=== PATIENT | male | born 1960 | race Caucasian/White ===

== ENCOUNTER 2017-07-11 23:39 | Emergency (ER) | payer OTHER, MEDICAID ==
[~2017-07-11] VITALS: Ht 172.7 cm; Wt 82.0 kg
[2017-07-11] MEDS ORDERED: IBUPROFEN 600MG TABLET PO STA (23:56)
[2017-07-12 00:28] LABS: BASOPHILS % 0.5 % (0.0-2.0); EOSINOPHILS % 4.4 % (0.0-5.0); HEMATOCRIT. 41.1 % (42.0-52.0); HEMOGLOBIN. 14.3 g/dL (14.0-18.0); LYMPHOCYTES % 16.8 % (20.0-50.0); MEAN CORPUSCULAR VOLUME 89.4 fL (80.0-94.0); MONOCYTES % 5.2 % (2.0-8.0); NEUTROPHILS % 73.1 % (40.0-76.0); RED CELL DISTRIBUTION WIDTH 13.3 % (11.6-14.6)
[2017-07-12 00:35] LABS: CHLORIDE 109 mEq/L (98-107)
[2017-07-12 00:39] LABS: ETHANOL BLOOD < 10 mg/dL
[2017-07-12 00:50] LABS: CLARITY URINE CLOUDY (CLEAR); COLOR URINE YELLOW (YELLOW); KETONES URINE NEGATIVE (NEGATIVE); LEUKOCYTE ESTERASE URINE NEGATIVE (NEGATIVE); NITRITE URINE NEGATIVE (NEGATIVE); OCCULT BLOOD URINE 1+ (NEGATIVE); PH URINE 6.5 (4.5-8.0); PROTEIN URINE NEGATIVE (NEGATIVE); SPECIFIC GRAVITY URINE 1.013 (1.005-1.030)
[2017-07-12 00:51] LABS: MEAN PLATELET VOLUME 10.3 fl (7.4-10.4); PLATELET 105 x1000/uL (130-400)
[2017-07-12 01:05] LABS: *AMPHETAMINES SCREEN URINE NEGATIVE (NEGATIVE); *BARBITURATES SCREEN URINE NEGATIVE (NEGATIVE); *BENZODIAZEPINES SCREEN URINE NEGATIVE (NEGATIVE); *COCAINE SCREEN URINE NEGATIVE (NEGATIVE); METHADONE URINE SCREEN NEGATIVE (NEGATIVE); OPIATES URINE SCREEN PRESUMTIVE POSITIVE (NEGATIVE)
[2017-07-12 01:06] LABS: CANNABINOID URINE SCREEN NEGATIVE (NEGATIVE); PHENCYCLIDINE URINE SCREEN NEGATIVE (NEGATIVE)
[2017-07-12 16:00] VITALS: BP 135/81
== END 2017-07-12 16:52 | disposition home or self-care (01) ==
LOC: ER 23:39
DX: R32 Unspecified urinary incontinence (principal); R15.9 Full incontinence of feces; R31.29 Other microscopic hematuria; I69.354 Hemiplegia and hemiparesis following cerebral infarction affecting left non-dominant side; I10 Essential (primary) hypertension; Z75.1 Person awaiting admission to adequate facility elsewhere; Z59.0 Homelessness
CPT/HCPCS: 36415; 80053; 80305; 81003; 85025; 93005; 99285; G0482